=== PATIENT | male | born 1950 | race Caucasian/White ===

== ENCOUNTER 2017-09-07 15:09 | Emergency (ER) | payer OTHER ==
--- NOTE | 2017-09-07 15:13 | PDOC ---
Rapid Medical Evaluation Time Seen by Provider: 09/07/17 15:10 Medical Evaluation: Allergies Allergy/AdvReac Type Severity Reaction Status Date / Time No Known Allergies Allergy Verified 12/12/15 19:07 09/07/17 15:11 I have performed a brief in-person evaluation of this patient. The patient presents with a chief complaint of: nail infection x 2 weeks Pertinent physical exam findings: tenderness, discoloration of left thumbnail I have ordered the following: nothing The patient will proceed to the ED for further evaluation. Discharge Disposition - Diagnosis Nail bed infection - Referrals - Patient Instructions - Post Discharge Activity
[2017-09-07 15:14] VITALS: BP 132/59; PULSE 65; TEMP 98.3; BMI 44.2
--- NOTE | 2017-09-07 15:22 | PDOC ---
History of Present Illness - General Chief Complaint: Pain Stated Complaint: FINGER NAIL PROBLEM Time Seen by Provider: 09/07/17 15:10 History Source: Patient Exam Limitations: No Limitations (66y/o M with L thumb pain X 2wk) Past History - Travel Traveled outside of the country in the last 30 days: No Close contact w/someone who was outside of country & ill: No - Past Medical History Allergies/Adverse Reactions: Allergies Allergy/AdvReac Type Severity Reaction Status Date / Time No Known Allergies Allergy Verified 09/07/17 15:12 Home Medications: Ambulatory Orders Folic Acid 1 mg PO DAILY 04/21/15 Levothyroxine [Synthroid -] 50 mcg PO DAILY 04/21/15 Multivitamin [Poly-Vitamin] 1 each PO DAILY 04/21/15 Prednisone 5 mg PO DAILY 04/21/15 Tamsulosin HCl [Flomax] 0.4 mg PO DAILY 04/21/15 Methotrexate [Mexate -] 20 mg PO Q7D 04/22/15 Ciclopirox [Penlac] 3.3 ml TP HS #1 bottle 09/07/17 COPD: Yes GI Disorders: Yes (COLON POLYPS) Liver Disease: (LARGE LIVER) Thyroid Disease: Yes (HYPOTHYROIDISM) Other medical history: arthritis - Surgical History Cholecystectomy: Yes - Immunization History Immunization Up to Date: Yes - Suicide/Smoking/Psychosocial Hx Smoking History: Never smoked Have you smoked in the past 12 months: No Information on smoking cessation initiated: No Hx Alcohol Use: No Drug/Substance Use Hx: No *Physical Exam - Vital Signs Last Vital Signs Temp Pulse Resp BP Pulse Ox 98.3 F 65 18 132/59 97 09/07/17 15:12 09/07/17 15:12 09/07/17 15:12 09/07/17 15:12 09/07/17 15:12 - Physical Exam General Appearance: Yes: Nourished Integumentary: positive: Other (L thumb nail with greenish discoloration up to 40% of nail, no pocket of abscess noted) Medical Decision Making - Medical Decision Making 09/07/17 15:35 66y/o M R hand dominant with L thumb onychomycosis, s/p gel nail ivorian 2wks ago Plan: xray to r/o bone involvement Rx for ciclopirox with derm f/u x-ray degenerative changes, no bone involvement. *DC/Admit/Observation/Transfer Diagnosis at time of Disposition: Nail bed infection, Nail fungal infection - Discharge Dispostion Disposition: HOME Condition at time of disposition: Stable Admit: No - Prescriptions Prescriptions: Ciclopirox [Penlac] 3.3 ml TP HS #1 bottle - Referrals Referrals: Francis Barrientos MD [Primary Care Provider] - Allison Correia MD [Staff Physician] - 1 week - Patient Instructions Printed Discharge Instructions: Onychomycosis - Post Discharge Activity
[2017-09-07] MEDS ORDERED: IBUPROFEN 600 MG TABLET (FP) PO ONE ×2 (15:36→15:44)
== END 2017-09-07 16:36 | disposition home or self-care (01) ==
LOC: JERFT 15:09
DX: B35.1 Tinea unguium (principal); J44.9 Chronic obstructive pulmonary disease, unspecified; E03.9 Hypothyroidism, unspecified; M12.9 Arthropathy, unspecified; Z87.19 Personal history of other diseases of the digestive system
CPT/HCPCS: 73140-TC-LT-FY; 99281-25

== ENCOUNTER 2018-02-12 11:36 | Inpatient (IN) | payer OTHER ==
--- NOTE | 2018-02-12 12:03 | PDOC ---
History of Present Illness - General Chief Complaint: Shortness of Breath Stated Complaint: PCP SENT Time Seen by Provider: 02/12/18 11:53 - History of Present Illness Initial Comments: 02/12/18 12:02 Patient is a 67 year old male with a PMH of BPH, hypothyroidism, morbid obesity s/p gastric bypass in July 2017, presents to the ED c/o 5 day h/o cough and dyspnea. Cough is non-productive, constant, associated with dyspnea. Cough exacerbated with sitting or lying flat. No POWERS, pleuritic chest pain. Endorse sore throat. No fevers/chills. Tried Dayquil and Nyquil with no relief of symptoms. Tolerating PO intake, however limited appetite 2/2 to his symptoms. Last BM this morning prior to presentation and was normal. No family cardiac history. No h/o recent travel or immobilization. Patient smoked for 4-5 years but quit @ age 21. [place] and states he spends most of the day standing, no known sick contacts. Patient was evaluated by his PMD, Dr. Francis Barrientos this morning who instructed patient to come to the ED for further evaluation. Patient denies chest pain. Patient denies abdominal pain, nausea/vomiting, diarrhea/constipation, dysuria/ hematuria. NKDA Surgical: cholecystectomy, bariatric surgery Social: remote smoking history, denies alcohol, denies recreational drugs PMD: Dr. Francis Barrientos As per EMR, patient last evaluated in our ED in 08/2017 for L digit onychomycosis. Past History - Past Medical History Allergies/Adverse Reactions: Allergies Allergy/AdvReac Type Severity Reaction Status Date / Time No Known Allergies Allergy Verified 02/12/18 11:38 Home Medications: Ambulatory Orders Folic Acid 1 mg PO DAILY 04/21/15 Levothyroxine [Synthroid -] 50 mcg PO DAILY 04/21/15 Multivitamin [Poly-Vitamin] 1 each PO DAILY 04/21/15 Prednisone 5 mg PO DAILY 04/21/15 Tamsulosin HCl [Flomax] 0.4 mg PO DAILY 04/21/15 Methotrexate [Mexate -] 20 mg PO Q7D 04/22/15 COPD: Yes GI Disorders: Yes (COLON POLYPS) Liver Disease: (LARGE LIVER) Thyroid Disease: Yes (HYPOTHYROIDISM) Other medical history: prostate - Surgical History Abdominal Surgery: Yes (gastric sleeve) Cholecystectomy: Yes - Immunization History Immunization Up to Date: Yes - Suicide/Smoking/Psychosocial Hx Smoking History: Never smoked Have you smoked in the past 12 months: No Hx Alcohol Use: No Drug/Substance Use Hx: No Substance Use Type: None Review of Systems - Review of Systems Constitutional: No: Chills, Fever HEENTM: No: Blurred Vision, Double Vision Respiratory: Yes: Cough, Shortness of Breath. No: Stridor, Wheezing, Hemoptysis Cardiac (ROS): No: Chest Pain, Lightheadedness, Palpitations ABD/GI: No: Constipated, Diarrhea, Nausea, Vomiting : No: Burning, Dysuria *Physical Exam - Vital Signs Last Vital Signs Temp Pulse Resp BP Pulse Ox 98.1 F 69 20 115/71 95 02/12/18 11:38 02/12/18 11:38 02/12/18 11:38 02/12/18 11:38 02/12/18 11:38 - Physical Exam General Appearance: Yes: Nourished, Obese HEENT: positive: EOMI, BERTRAM, Hearing Grossly Normal, TM Erythema. negative: Pharyngeal Erythema, TM Bulging, TM Dull Neck: positive: Trachea midline, Supple Respiratory/Chest: positive: Rhonchi. negative: Chest Tender, Accessory Muscle Use, Labored Respiration, Rapid RR, Crackles, Rales, Wheezing Cardiovascular: positive: Regular Rhythm, S1, S2 Vascular Pulses: Dorsalis-Pedis (R): 2+, Doralis-Pedis (L): 2+ Extremity: positive: Other (2+ B/L LE pitting edema) Integumentary: positive: Normal Color, Dry, Warm ED Treatment Course - LABORATORY CBC & Chemistry Diagram: 02/12/18 12:14 02/12/18 12:14 - RADIOLOGY Radiology Studies Ordered: Category Date Time Status CHEST X-RAY PORTABLE* [RAD] Stat Radiology 02/12/18 12:01 Ordered Medical Decision Making - Medical Decision Making 02/12/18 12:29 67 year old male presents to ED c/o cough and dyspnea. VS unremarkable, scattered rhonchi on PE. Frontal diagnosis: PNA, Bronchitis, Influenza, Viral URI, less likely r/o ACS, PE, new onset CHF. W/u: Troponin, D-Dimer, EKG, BNP, CXR. Reassess. 02/12/18 13:20 CXR shows new L lower lobe infiltrate. Patient continues to breath comfortably on RA - will administer Duo-Neb x1 to see if any symptomatic relief. No leukocytosis D-Dimer pending. 02/12/18 13:22 S/p Duo-Neb Influenza A negative D-Dimer normal BNP nL 02/12/18 13:36 Case d/w patient's PMD, Dr. Barrientos, requests observation admission given patient 's age. Dr. Hoskins for pulm consult Patient admitted for observation. Patient and patient's family @ bedside counseled on plan of care. *DC/Admit/Observation/Transfer Diagnosis at time of Disposition: Cough - Discharge Dispostion Condition at time of disposition: Fair Decision to Admit order: Yes - Referrals - Patient Instructions - Post Discharge Activity
--- NOTE | 2018-02-12 12:13 | PDOC ---
Attending Attestation - Medical Decision Making EXAM#: TYPE/EXAM: RESULT: [id number] RAD/CHEST PA LAT 2 view chest Cough with shortness of breath Left lower lobe pulmonary infiltrates consistent with left lower lobe pneumonia Impression: Left lower lobe pneumonia. Reported By: Geo Wren MD 02/12/18 1238 02/12/18 13:01 Documentation prepared by Maite Van, acting as medical affairs leader for Michael Aguilar MD, <Maite Van - Last Filed: 02/12/18 13:01> - Resident Resident Name: Alessia Liangica - ED Attending Attestation I have performed the following: I have examined & evaluated the patient, The case was reviewed & discussed with the resident, I agree w/resident's findings & plan, Exceptions are as noted - HPI HPI: 02/12/18 13:44 The patient is a 67 year old male, with a significant past medical history of BPH, hypothyroidism, and gastric bypass (07/25/17), who presents to the emergency department with dry cough, shortness of breath, and orthopnea since Monday morning. He states he noticed a slight cough late night into Monday morning. He reportedly took Dayquil and Nyquil on Monday with no relief. He states his cough is non productive and exacerbated with sitting or lying flat. He reports taking a deep breath also exacerbates his cough. He reports mild shortness of breath with lying flat which he attributes to the exacerbation of cough when in that flat position. He also reports intermittent chills, but denies fever. He reports associated throat pain with coughing. He denies shortness of breath with walking. He denies pleuritic pain. Secondarily, he states he has not eaten any solid food since the onset of symptoms on Monday and reportedly only drank approximately 32 oz of fluids. He states he does not feel hungry. 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 He states he went to see his PCP, Dr. Barrientos, who advised him to come to the ED. The patient denies chest pain, headache and dizziness. The patient denies fever , chills, nausea, vomit, diarrhea and constipation. The patient denies dysuria, frequency, urgency and hematuria. Allergies: NKDA Past surgical history: gastric bypas Social history: former smoker (+40 yrs ago) PCP - Dr. Barrientos - Physicial Exam PE: 02/12/18 12:43 GENERAL: The patient is awake, alert, and fully oriented, Nontoxic - in no acute distress. HEAD: Normocephalic, atraumatic. EYES: extraocular movements intact, sclera anicteric, conjunctiva clear. ENT: Normal voice, Moist mucous membranes. NECK: Normal range of motion, supple LUNGS: Breath sounds equal, clear to auscultation bilaterally. No wheezes, no rhonchi, no rales. HEART: Regular rate and rhythm, normal S1 and S2 without murmur, rub or gallop. ABDOMEN: Soft, nontender, normoactive bowel sounds. No guarding, no rebound. . No CVA tenderness EXTREMITIES: Normal range of motion, trace edema. neg homans sign b/l. NEUROLOGICAL: No facial assymetry, Normal speech, PSYCH: Normal mood, normal affect. SKIN: Warm, Dry, normal turgor, - Medical Decision Making 02/12/18 12:44 Differential for the patient's symptoms includes bronchitis, low suspicion of possible ACS also consider PE however the patient's wells criteria is low risk. Pain blood work chest x-ray EKG will reassess 02/12/18 13:44 The patient's chest x-ray noted for L sided infiltrate Suspect possible pneumonia we'll treat evaluation with antibiotics His blood work was unremarkable otherwise <Michael Aguilar - Last Filed: 02/12/18 13:44> Heart Score/ECG Review - ECG Impressions Comment:: 02/12/18 12:32 Twelve-lead EKG was performed and reviewed by me. There is normal sinus rhythm with a rate of 57 The axis is normal. The intervals are normal. There is normal R wave progression There are no ST or T wave abnormalities. Impression: Sinus bradycardia <Michael Aguilar - Last Filed: 02/12/18 13:44>
[2018-02-12 12:28] LABS: BASO % 0.4 % (0-2.0); EOS % 2.6 % (0-4.5); HEMATOCRIT 44.6 % (35.4-49); HEMOGLOBIN 15.5 GM/dL (11.7-16.9); LYMPH % 13.8 % (8-40); MCH 31.7 pg (25.7-33.7); MCHC 34.7 g/dl (32.0-35.9); MEAN CELL VOLUME 91.3 fl (80-96); MEAN PLT VOLUME 8.1 fl (7.5-11.1); MONO % 9.7 % (3.8-10.2); NEUT % 73.5 % (42.8-82.8); PLATELET COUNT 186 K/MM3 (134-434); RBC 4.88 M/mm3 (4.00-5.60); RDW 13.4 % (11.9-15.9); WHITE BLOOD COUNT 7.4 K/mm3 (4.0-10.0)
[2018-02-12] MEDS ORDERED: ALBUTEROL SO4 2.5/IPRATROPIUM 0.5 INH SOL 3 ML VIAL.NEB. NEB ONE ×2 (12:44→13:02)
[2018-02-12 12:51] LABS: ALBUMIN 3.1 g/dl (3.4-5.0); ALK PHOS 82 U/L (45-117); ANION GAP 8 MMOL/L (8-16); BILIRUBIN,TOTAL 1.5 mg/dL (0.2-1); BLOOD UREA NITROGEN 13 mg/dL (7-18); CALCIUM 8.3 mg/dL (8.5-10.1); CHLORIDE 103 mmol/L (98-107); CO2 28 mmol/L (21-32); CREATININE 0.8 mg/dL (0.55-1.3); GLUCOSE,RANDOM 99 mg/dL (74-106); N-TERMINAL BNP 11.3 pg/ml (5-125); POTASSIUM 4.1 mmol/L (3.5-5.1); SGOT/AST 22 U/L (15-37); SGPT/ALT 18 U/L (13-61); SODIUM 139 mmol/L (136-145); TOT PROT 6.9 g/dl (6.4-8.2)
[2018-02-12] MEDS ORDERED: guaiFENesin/D-M SUGAR-FREE/ACLHOL-FREE 118 ML BOTTLE PO ONE (15:40)
[2018-02-12] MEDS ORDERED: ACETAMINOPHEN 325 MG TABLET (FP) PO PRN (15:47)
[2018-02-12] MEDS ORDERED: ALBUTEROL SO4 2.5/IPRATROPIUM 0.5 INH SOL 3 ML VIAL.NEB. NEB PRN (15:47)
--- NOTE | 2018-02-12 18:07 | EKG ---
Test Reason : Blood Pressure : / mmHG Vent. Rate : 057 BPM Atrial Rate : 057 BPM P-R Int : 152 ms QRS Dur : 080 ms QT Int : 408 ms P-R-T Axes : 109 007 043 degrees QTc Int : 397 ms SINUS BRADYCARDIA OTHERWISE NORMAL ECG NO PREVIOUS ECGS AVAILABLE Confirmed by KIM HERNANDES MD ([id number]) on 02/12/2018 6:07:19 PM Referred By: Confirmed By:KIM HERNANDES MD
[2018-02-13] MEDS ORDERED: AZITHROMYCIN 250 MG TABLET PO ONE (05:22)
[2018-02-13] MEDS: LEVOTHYROXINE NA 50 MCG TABLET (FP) PO SCH (06:36)
[2018-02-13] MEDS ORDERED: cefTRIAXone SODIUM 1 GM VIAL ONE (09:15)
[2018-02-13] MEDS ORDERED: DEXTROSE 5%-WATER - 50 ML IVPB ONE (09:16)
[2018-02-13] MEDS: FOLIC ACID 1 MG TABLET (FP) PO SCH (09:25)
[2018-02-13] MEDS: TAMSULOSIN HCL 0.4 MG CAP.ER.24H (FP) PO SCH (09:25)
[2018-02-13] MEDS: predniSONE 5 MG TABLET (UD) PO SCH (09:25)
[2018-02-13] MEDS: CEFTRIAXONE 1 GM in DEXTROSE 5%-WATER - 50 ML IVPB SCH (09:25)
--- NOTE | 2018-02-13 11:04 | CON.PULM ---
Consult Consult Specialty:: PULMONARY Referred by:: Dr. Barrientos Reason for Consultation:: pneumonia - History of Present Illness Chief Complaint: cough History of Present Illness: 67yo male with h/o hypothyroidism, BPH who was admitted with cough and shortness of breath x 4 days. Cough is nonproductive and precipitates the shortness of breath. No chest pain or palpitations. No wheezing. Does report subjective fevers, chills and sweats prior to admission. Received flu and pneumonia vaccine last year. No prior pneumonias. He is a remote smoker, no history of asthma or COPD. - History Source History Provided By: Patient, Medical Record Limitations to Obtaining History: No Limitations - Past Medical History Renal/: Yes: BPH Endocrine: Yes: Hypothyroidism - Alcohol/Substance Use Hx Alcohol Use: No - Smoking History Smoking history: Never smoked Have you smoked in the past 12 months: No If you are a former smoker, when did you quit?: 20 years ago Home Medications - Allergies Allergies/Adverse Reactions: Allergies Allergy/AdvReac Type Severity Reaction Status Date / Time No Known Allergies Allergy Verified 02/12/18 11:38 - Home Medications Home Medications: Ambulatory Orders Folic Acid 1 mg PO DAILY 04/21/15 Levothyroxine [Synthroid -] 50 mcg PO DAILY 04/21/15 Multivitamin [Poly-Vitamin] 1 each PO DAILY 04/21/15 Prednisone 5 mg PO DAILY 04/21/15 Tamsulosin HCl [Flomax] 0.4 mg PO DAILY 04/21/15 Methotrexate [Mexate -] 20 mg PO Q7D 04/22/15 Review of Systems - Review of Systems Constitutional: reports: Chills, Fever, Loss of Appetite, Night Sweats Eyes: denies: Recent Change in Vision HENT: denies: Nasal Congestion, Throat Pain Neck: denies: Stiffness, Tenderness Cardiovascular: reports: Shortness of Breath. denies: Chest Pain, Edema, Palpitations Respiratory: reports: Cough. denies: Hemoptysis, Wheezing Gastrointestinal: denies: Abdominal Pain, Nausea, Vomiting Genitourinary: denies: Dysuria, Hematuria Neurological: denies: Dizziness, Headache Physical Exam Vital Sings: Vital Signs Temperature 98.5 F 02/13/18 09:20 Pulse Rate 75 02/13/18 09:20 Respiratory Rate 18 02/13/18 09:20 Blood Pressure 113/70 02/13/18 09:20 O2 Sat by Pulse Oximetry (%) 96 02/12/18 18:42 Constitutional: Yes: Calm Eyes: Yes: Conjunctiva Clear, EOM Intact HENT: Yes: Atraumatic, Normocephalic Neck: Yes: Supple, Trachea Midline Cardiovascular: Yes: Regular Rate and Rhythm Respiratory: Yes: Diminished (decreased breath sounds at the bases) ...Clubbing: No Gastrointestinal: Yes: Normal Bowel Sounds, Soft. No: Tenderness Edema: No Neurological: Yes: Alert, Oriented Labs: CBC, BMP 02/12/18 12:14 02/12/18 12:14 Imaging - Results Chest X-ray: Report Reviewed, Image Reviewed (LLL infiltrate) Problem List - Problems (1) Pneumonia Code(s): J18.9 - PNEUMONIA, UNSPECIFIED ORGANISM (2) Hypothyroid Code(s): E03.9 - HYPOTHYROIDISM, UNSPECIFIED (3) BPH (benign prostatic hyperplasia) Code(s): N40.0 - BENIGN PROSTATIC HYPERPLASIA WITHOUT LOWER URINRY TRACT SYMP Assessment/Plan Pneumonia - Community Acquired Hypothyroidism BPH - agree with ceftriaxone/azithromycin - send urinary antigens - if cultures negative, can likely change antibiotics to PO in AM - will need outpt CXR in 6-8 weeks to ensure resolution of infiltrates - DVT prophylaxis Thank you for this consult Jhony Ng MD
--- NOTE | 2018-02-13 13:24 | PN ---
Progress Note (short form) - Note Progress Note: ID CONSULT DICTATED COMMUNITY ACQUIRED V. ATYPICAL LLL PNEUMONIA RA ON MTX/ PREDNISONE AWAIT C/S EMPIRIC ZITHROMAX/ CEFTRIAXONE
--- NOTE | 2018-02-13 13:54 | CONS ---
DATE OF CONSULTATION: DATE OF DICTATION: 02/13/2018 INFECTIOUS DISEASE CONSULTATION The patient is a 67-year-old male with a history of rheumatoid arthritis on prednisone and methotrexate evaluated for pneumonia. The patient states he began to feel unwell on Friday, February 09, 2018. He began to feel dyspneic and developed a nonproductive cough. He developed progressively worsening shortness of breath and a nonproductive cough as well as anorexia. He reports having little to no oral intake over the past several days. He presented to his primary care doctor and was referred to the hospital for admission. On admission a chest x-ray shows a left lower lobe infiltrate. The cough is described as nonproductive. He denies any purulent sputum production or hemoptysis. The patient is a nonsmoker. He works in [employer] and is exposed to many passengers. He denies any recent travel himself and no recent hospitalizations. He is up-to-date with respect to influenza and pneumococcal vaccines. PAST MEDICAL HISTORY: Positive for BPH, hypothyroidism, and obesity. PAST SURGICAL HISTORY: Status post gastric bypass and cholecystectomy. ALLERGIES: No known allergies. MEDICATIONS: Folic acid, Synthroid, prednisone 5 mg, methotrexate, and Flomax. SOCIAL HISTORY: He is a former smoker and stopped many years ago. He lives in the community with his significant other. SYSTEMS REVIEW: Neurologic: No loss of consciousness, seizure activity or focal weakness. Cardiac: Negative chest pain or palpitations. Respiratory: As per HPI. Gastrointestinal: Negative vomiting and diarrhea. Genitourinary: Negative for urinary tract infection. LABORATORY DATA: White count 7.4, BUN 13, and creatinine 0.8. Influenza swab is negative. Sputum culture and urine Legionella antigen pending. PHYSICAL EXAMINATION: General: He is awake and alert. He is in no acute respiratory distress. He does have paroxysms of cough with deep inspiration. Vital Signs: Temperature is 98.5, blood pressure 113/70, pulse 75 and regular, and respirations 18 per minute. HEENT: Sclerae anicteric. Heart: Sounds S1, S2. Lungs: Rhonchi at the bases bilaterally. Abdomen: Obese, soft, and nontender. Extremities: Negative for edema. Stasis dermatitis is noted in left lower extremity. IMPRESSION: 1. Community-acquired versus atypical left lower lobe pneumonia. 2. Possible sepsis secondary to pneumonia. 3. History of rheumatoid arthritis on prednisone and methotrexate. Pending cultures empiric antibiotic coverage with Zithromax and ceftriaxone, obtain a sputum culture, urine Legionella antigen, and pulmonary evaluation. Thank you for the kind referral. EVANS ARANDA M.D. [id number]
[2018-02-13] MEDS: guaiFENesin 200 MG/10 ML 10 ML UNIT-DOSE CUPS PO PRN ×2 (14:26→21:31)
--- NOTE | 2018-02-13 15:11 | HP ---
Admitting History and Physical - Primary Care Physician PCP: Francis Barrientos - Admission History of Present Illness: The patient is a 67 year old male, with a significant past medical history of BPH, hypothyroidism, and gastric bypass (07/25/17), who presents to the emergency department with dry cough, shortness of breath, and orthopnea since Monday morning. He states he noticed a slight cough late night into Monday morning. He reportedly took Dayquil and Nyquil on Monday with no relief. He states his cough is non productive and exacerbated with sitting or lying flat. He reports taking a deep breath also exacerbates his cough. He reports mild shortness of breath with lying flat which he attributes to the exacerbation of cough when in that flat position. He also reports intermittent chills, but denies fever. He reports associated throat pain with coughing. He denies shortness of breath with walking. He denies pleuritic pain. Secondarily, he states he has not eaten any solid food since the onset of symptoms on Monday and reportedly only drank approximately 32 oz of fluids. He states he does not feel hungry. 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 He states he went to see his PCP, Dr. Barrientos, who advised him to come to the ED. The patient denies chest pain, headache and dizziness. The patient denies fever , chills, nausea, vomit, diarrhea and constipation. The patient denies dysuria, frequency, urgency and hematuria. Allergies: NKDA Past surgical history: gastric bypas Social history: former smoker (+40 yrs ago) PCP - Dr. Barrientos History Source: Patient, Medical Record - Past Medical History Renal/: Yes: BPH Musculoskeletal: Yes: Other Rheumatology: Yes: Rheumatoid Arthritis Endocrine: Yes: Hypothyroidism - Smoking History Smoking history: Never smoked Have you smoked in the past 12 months: No If you are a former smoker, when did you quit?: 20 years ago - Alcohol/Substance Use Hx Alcohol Use: No Home Medications - Allergies Allergies/Adverse Reactions: Allergies Allergy/AdvReac Type Severity Reaction Status Date / Time No Known Allergies Allergy Verified 02/12/18 11:38 - Home Medications Home Medications: Ambulatory Orders Folic Acid 1 mg PO DAILY 04/21/15 Levothyroxine [Synthroid -] 50 mcg PO DAILY 04/21/15 Multivitamin [Poly-Vitamin] 1 each PO DAILY 04/21/15 Prednisone 5 mg PO DAILY 04/21/15 Tamsulosin HCl [Flomax] 0.4 mg PO DAILY 04/21/15 Methotrexate [Mexate -] 20 mg PO Q7D 04/22/15 Review of Systems - Review of Systems Respiratory: reports: Cough Physical Examination Vital Signs: Vital Signs Temperature 97.9 F 02/13/18 14:51 Pulse Rate 64 02/13/18 14:51 Respiratory Rate 18 02/13/18 14:51 Blood Pressure 119/64 02/13/18 14:51 O2 Sat by Pulse Oximetry (%) 96 02/13/18 09:20 Constitutional: Yes: Calm Neck: Yes: Trachea Midline Cardiovascular: Yes: Regular Rate and Rhythm, S1, S2 Respiratory: Yes: Wheezes, Other (crackles) Gastrointestinal: Yes: Normal Bowel Sounds, Soft Edema: No Labs: CBC, BMP 02/12/18 12:14 02/12/18 12:14 Imaging - Results Chest X-ray: Report Reviewed (left lower lobe infiltrate) Problem List - Problems (1) Pneumonia Assessment/Plan: urine legionalla pending zithromax and rocpehin ID and pulm on board culuture pending Code(s): J18.9 - PNEUMONIA, UNSPECIFIED ORGANISM (2) BPH (benign prostatic hyperplasia) Assessment/Plan: flomax Code(s): N40.0 - BENIGN PROSTATIC HYPERPLASIA WITHOUT LOWER URINRY TRACT SYMP (3) Hypothyroid Assessment/Plan: check tsh on synthroid Code(s): E03.9 - HYPOTHYROIDISM, UNSPECIFIED (4) Rheumatoid arthritis Assessment/Plan: prednisone mtx once a week Code(s): M06.9 - RHEUMATOID ARTHRITIS, UNSPECIFIED
[2018-02-13] MEDS: AZITHROMYCIN IVPB 500 MG in DEXTROSE 5%-WATER - 250 ML IVPB SCH (15:38)
[2018-02-14] MEDS: LEVOTHYROXINE NA 50 MCG TABLET (FP) PO SCH (06:26)
[2018-02-14] MEDS: guaiFENesin 200 MG/10 ML 10 ML UNIT-DOSE CUPS PO PRN ×4 (06:26→21:39)
[2018-02-14 07:12] LABS: BASO % 0.8 % (0-2.0); EOS % 4.1 % (0-4.5); HEMATOCRIT 42.9 % (35.4-49); HEMOGLOBIN 14.5 GM/dL (11.7-16.9); LYMPH % 26.6 % (8-40); MCHC 33.8 g/dl (32.0-35.9); MEAN CELL VOLUME 91.5 fl (80-96); MEAN PLT VOLUME 7.9 fl (7.5-11.1); MONO % 8.9 % (3.8-10.2); NEUT % 59.6 % (42.8-82.8); PLATELET COUNT 192 K/MM3 (134-434); RBC 4.69 M/mm3 (4.00-5.60); RDW 13.3 % (11.9-15.9); WHITE BLOOD COUNT 6.5 K/mm3 (4.0-10.0)
[2018-02-14 07:39] LABS: ALBUMIN 2.9 g/dl (3.4-5.0); ALK PHOS 73 U/L (45-117); ANION GAP 8 MMOL/L (8-16); BILIRUBIN,TOTAL 0.5 mg/dL (0.2-1); BLOOD UREA NITROGEN 12 mg/dL (7-18); CALCIUM 8.7 mg/dL (8.5-10.1); CHLORIDE 103 mmol/L (98-107); CO2 28 mmol/L (21-32); CREATININE 0.8 mg/dL (0.55-1.3); GLUCOSE,RANDOM 77 mg/dL (74-106); SGOT/AST 9 U/L (15-37); SGPT/ALT 15 U/L (13-61); SODIUM 140 mmol/L (136-145); TOT PROT 6.2 g/dl (6.4-8.2)
[2018-02-14] MEDS ORDERED: AZITHROMYCIN IVPB 500 MG in DEXTROSE 5%-WATER - 250 ML IVPB SCH (10:00)
--- NOTE | 2018-02-14 10:00 | PN ---
Progress Note, Physician Chief Complaint: AWAKE ALERT EVENTS REVIEWED FEELING BETTER - Current Medication List Current Medications: Active Medications Acetaminophen (Tylenol -) 650 mg PO Q6H PRN PRN Reason: FEVER Albuterol/Ipratropium (Duoneb -) 1 amp NEB Q6H PRN PRN Reason: SHORTNESS OF BREATH Folic Acid (Folic Acid -) 1 mg PO DAILY [facility] Last Admin: 02/13/18 09:25 Dose: 1 mg Guaifenesin (Robitussin -) 10 ml PO Q4H PRN PRN Reason: COUGH Last Admin: 02/14/18 06:26 Dose: 10 ml Ceftriaxone Sodium 1 gm/ (Dextrose) 50 mls @ 100 mls/hr IVPB DAILY [facility]; Protocol Last Admin: 02/13/18 09:25 Dose: 100 mls/hr Azithromycin 500 mg/ Dextrose 250 mls @ 250 mls/hr IVPB DAILY [facility] Last Admin: 02/13/18 15:38 Dose: 250 mls/hr Levothyroxine Sodium (Synthroid -) 50 mcg PO DAILY@0700 [facility] Last Admin: 02/14/18 06:26 Dose: 50 mcg Prednisone (Deltasone -) 5 mg PO DAILY [facility] Last Admin: 02/13/18 09:25 Dose: 5 mg Tamsulosin HCl (Flomax -) 0.4 mg PO DAILY@0830 [facility] Last Admin: 02/13/18 09:25 Dose: 0.4 mg - Objective Vital Signs: Vital Signs Temperature 97.6 F 02/14/18 05:16 Pulse Rate 64 02/14/18 05:16 Respiratory Rate 18 02/14/18 05:16 Blood Pressure 110/58 L 02/14/18 05:16 O2 Sat by Pulse Oximetry (%) 96 02/13/18 21:00 Constitutional: Yes: Mild Distress Eyes: Yes: WNL HENT: Yes: WNL Neck: Yes: WNL Cardiovascular: Yes: WNL Respiratory: Yes: Cough, On Nasal O2, Rhonchi Gastrointestinal: Yes: WNL Genitourinary: Yes: WNL Musculoskeletal: Yes: WNL Extremities: Yes: WNL Edema: No Peripheral Pulses WNL: Yes Integumentary: Yes: WNL Wound/Incision: Yes: Clean/Dry Neurological: Yes: WNL ...Motor Strength: WNL Psychiatric: Yes: WNL Labs: CBC, BMP 02/14/18 06:00 02/14/18 06:00 Problem List - Problems (1) BPH (benign prostatic hyperplasia) Code(s): N40.0 - BENIGN PROSTATIC HYPERPLASIA WITHOUT LOWER URINRY TRACT SYMP (2) Cough Code(s): R05 - COUGH (3) Hypothyroid Code(s): E03.9 - HYPOTHYROIDISM, UNSPECIFIED (4) Pneumonia Code(s): J18.9 - PNEUMONIA, UNSPECIFIED ORGANISM (5) Rheumatoid arthritis Code(s): M06.9 - RHEUMATOID ARTHRITIS, UNSPECIFIED Assessment/Plan IV ABX IMMUNOCOMPRIMISED ON MTX WILL NEED REPEAT CXR IN 6-8 WEEKS NEBS OOB TO CHAIR DVT PROPHYLAXIS
[2018-02-14] MEDS ORDERED: DEXTROSE 5%-WATER - 50 ML IVPB ONE (10:14)
[2018-02-14] MEDS ORDERED: cefTRIAXone SODIUM 1 GM VIAL ONE (10:14)
[2018-02-14] MEDS: CEFTRIAXONE 1 GM in DEXTROSE 5%-WATER - 50 ML IVPB SCH (10:29)
[2018-02-14] MEDS: FOLIC ACID 1 MG TABLET (FP) PO SCH (10:29)
[2018-02-14] MEDS: TAMSULOSIN HCL 0.4 MG CAP.ER.24H (FP) PO SCH (10:29)
[2018-02-14] MEDS: predniSONE 5 MG TABLET (UD) PO SCH (10:29)
[2018-02-14] MEDS: AZITHROMYCIN IVPB 500 MG in DEXTROSE 5%-WATER - 250 ML IVPB SCH (11:10)
--- NOTE | 2018-02-14 14:18 | PN ---
Progress Note (short form) - Note Progress Note: PULMONARY Still with nonproductive cough. No fevers. Vital Signs Period Temp Pulse Resp BP Sys/Arnold Pulse Ox Last 24 Hr 97.5 F-98.3 F 60-68 18-18 104-135/58-70 96-97 Gen: NAD at rest Heart: RRR Lung: left base rales Abd: soft, nontender Ext: no edema CBC, BMP 02/14/18 06:00 02/14/18 06:00 Active Medications Acetaminophen (Tylenol -) 650 mg PO Q6H PRN PRN Reason: FEVER Albuterol/Ipratropium (Duoneb -) 1 amp NEB Q6H PRN PRN Reason: SHORTNESS OF BREATH Folic Acid (Folic Acid -) 1 mg PO DAILY [facility] Last Admin: 02/14/18 10:29 Dose: 1 mg Guaifenesin (Robitussin -) 10 ml PO Q4H PRN PRN Reason: COUGH Last Admin: 02/14/18 10:31 Dose: 10 ml Ceftriaxone Sodium 1 gm/ (Dextrose) 50 mls @ 100 mls/hr IVPB DAILY [facility]; Protocol Last Admin: 02/14/18 10:29 Dose: 100 mls/hr Azithromycin 500 mg/ Dextrose 250 mls @ 250 mls/hr IVPB DAILY [facility] Last Admin: 02/14/18 11:10 Dose: 250 mls/hr Levothyroxine Sodium (Synthroid -) 50 mcg PO DAILY@0700 [facility] Last Admin: 02/14/18 06:26 Dose: 50 mcg Prednisone (Deltasone -) 5 mg PO DAILY [facility] Last Admin: 02/14/18 10:29 Dose: 5 mg Tamsulosin HCl (Flomax -) 0.4 mg PO DAILY@0830 [facility] Last Admin: 02/14/18 10:29 Dose: 0.4 mg A/P Pneumonia - Community Acquired vs Atypical Rheumatoid Arthritis on immunosuppressants Hypothyroidism BPH - continue ceftriaxone/azithromycin - f/u cultures - incentive spirometry/ambulate - will need outpt CXR in 6-8 weeks to ensure resolution of infiltrates - DVT prophylaxis Problem List - Problems (1) Pneumonia Code(s): J18.9 - PNEUMONIA, UNSPECIFIED ORGANISM (2) Hypothyroid Code(s): E03.9 - HYPOTHYROIDISM, UNSPECIFIED (3) BPH (benign prostatic hyperplasia) Code(s): N40.0 - BENIGN PROSTATIC HYPERPLASIA WITHOUT LOWER URINRY TRACT SYMP
[2018-02-14 14:54] VITALS: BMI 40.5
[2018-02-15] MEDS: LEVOTHYROXINE NA 50 MCG TABLET (FP) PO SCH (06:18)
--- NOTE | 2018-02-15 08:17 | PN ---
Progress Note, Physician - Current Medication List Current Medications: Active Medications Acetaminophen (Tylenol -) 650 mg PO Q6H PRN PRN Reason: FEVER Albuterol/Ipratropium (Duoneb -) 1 amp NEB Q6H PRN PRN Reason: SHORTNESS OF BREATH Folic Acid (Folic Acid -) 1 mg PO DAILY [facility] Last Admin: 02/14/18 10:29 Dose: 1 mg Guaifenesin (Robitussin -) 10 ml PO Q4H PRN PRN Reason: COUGH Last Admin: 02/14/18 21:39 Dose: 10 ml Ceftriaxone Sodium 1 gm/ (Dextrose) 50 mls @ 100 mls/hr IVPB DAILY [facility]; Protocol Last Admin: 02/14/18 10:29 Dose: 100 mls/hr Azithromycin 500 mg/ Dextrose 250 mls @ 250 mls/hr IVPB DAILY [facility] Last Admin: 02/14/18 11:10 Dose: 250 mls/hr Levothyroxine Sodium (Synthroid -) 50 mcg PO DAILY@0700 [facility] Last Admin: 02/15/18 06:18 Dose: 50 mcg Prednisone (Deltasone -) 5 mg PO DAILY [facility] Last Admin: 02/14/18 10:29 Dose: 5 mg Tamsulosin HCl (Flomax -) 0.4 mg PO DAILY@0830 [facility] Last Admin: 02/14/18 10:29 Dose: 0.4 mg - Objective Vital Signs: Vital Signs Temperature 98.3 F 02/15/18 05:54 Pulse Rate 53 L 02/15/18 05:54 Respiratory Rate 20 02/15/18 05:54 Blood Pressure 111/63 02/15/18 05:54 O2 Sat by Pulse Oximetry (%) 97 02/14/18 21:00 Labs: CBC, BMP 02/14/18 06:00 02/14/18 06:00 Problem List - Problems (1) BPH (benign prostatic hyperplasia) Code(s): N40.0 - BENIGN PROSTATIC HYPERPLASIA WITHOUT LOWER URINRY TRACT SYMP (2) Cough Code(s): R05 - COUGH (3) Hypothyroid Code(s): E03.9 - HYPOTHYROIDISM, UNSPECIFIED (4) Pneumonia Code(s): J18.9 - PNEUMONIA, UNSPECIFIED ORGANISM (5) Rheumatoid arthritis Code(s): M06.9 - RHEUMATOID ARTHRITIS, UNSPECIFIED
--- NOTE | 2018-02-15 08:18 | PN ---
Progress Note, Physician Chief Complaint: AWAKE ALERT FEELING BETTER - Current Medication List Current Medications: Active Medications Acetaminophen (Tylenol -) 650 mg PO Q6H PRN PRN Reason: FEVER Albuterol/Ipratropium (Duoneb -) 1 amp NEB Q6H PRN PRN Reason: SHORTNESS OF BREATH Folic Acid (Folic Acid -) 1 mg PO DAILY [facility] Last Admin: 02/14/18 10:29 Dose: 1 mg Guaifenesin (Robitussin -) 10 ml PO Q4H PRN PRN Reason: COUGH Last Admin: 02/14/18 21:39 Dose: 10 ml Ceftriaxone Sodium 1 gm/ (Dextrose) 50 mls @ 100 mls/hr IVPB DAILY [facility]; Protocol Last Admin: 02/14/18 10:29 Dose: 100 mls/hr Azithromycin 500 mg/ Dextrose 250 mls @ 250 mls/hr IVPB DAILY [facility] Last Admin: 02/14/18 11:10 Dose: 250 mls/hr Levothyroxine Sodium (Synthroid -) 50 mcg PO DAILY@0700 [facility] Last Admin: 02/15/18 06:18 Dose: 50 mcg Prednisone (Deltasone -) 5 mg PO DAILY [facility] Last Admin: 02/14/18 10:29 Dose: 5 mg Tamsulosin HCl (Flomax -) 0.4 mg PO DAILY@0830 [facility] Last Admin: 02/14/18 10:29 Dose: 0.4 mg - Objective Vital Signs: Vital Signs Temperature 98.3 F 02/15/18 05:54 Pulse Rate 53 L 02/15/18 05:54 Respiratory Rate 20 02/15/18 05:54 Blood Pressure 111/63 02/15/18 05:54 O2 Sat by Pulse Oximetry (%) 97 02/14/18 21:00 Constitutional: Yes: Mild Distress Eyes: Yes: WNL HENT: Yes: WNL Neck: Yes: WNL Cardiovascular: Yes: WNL Respiratory: Yes: CTA Bilaterally, Cough, On Nasal O2 Gastrointestinal: Yes: WNL Genitourinary: Yes: WNL Musculoskeletal: Yes: Muscle Weakness Edema: Yes Edema: LLE: 1+, RLE: 1+ Peripheral Pulses WNL: Yes Integumentary: Yes: WNL Wound/Incision: Yes: Clean/Dry Neurological: Yes: WNL ...Motor Strength: WNL Psychiatric: Yes: WNL Labs: CBC, BMP 02/14/18 06:00 02/14/18 06:00 Problem List - Problems (1) BPH (benign prostatic hyperplasia) Code(s): N40.0 - BENIGN PROSTATIC HYPERPLASIA WITHOUT LOWER URINRY TRACT SYMP (2) Cough Code(s): R05 - COUGH (3) Hypothyroid Code(s): E03.9 - HYPOTHYROIDISM, UNSPECIFIED (4) Pneumonia Code(s): J18.9 - PNEUMONIA, UNSPECIFIED ORGANISM (5) Rheumatoid arthritis Code(s): M06.9 - RHEUMATOID ARTHRITIS, UNSPECIFIED Assessment/Plan IV ABX IMMUNOCOMPRIMISED ON MTX WILL NEED REPEAT CXR IN 6-8 WEEKS NEBS OOB TO CHAIR DVT PROPHYLAXIS DC PLANNING
[2018-02-15] MEDS ORDERED: DEXTROSE 5%-WATER - 50 ML IVPB ONE (08:20)
[2018-02-15] MEDS ORDERED: cefTRIAXone SODIUM 1 GM VIAL ONE (08:20)
[2018-02-15] MEDS ORDERED: LEVOTHYROXINE NA 50 MCG TABLET (FP) PO SCH (08:52)
[2018-02-15] MEDS: TAMSULOSIN HCL 0.4 MG CAP.ER.24H (FP) PO SCH (09:08)
[2018-02-15] MEDS: predniSONE 5 MG TABLET (UD) PO SCH (09:08)
[2018-02-15] MEDS: guaiFENesin 200 MG/10 ML 10 ML UNIT-DOSE CUPS PO PRN ×2 (09:09→17:41)
[2018-02-15] MEDS: AZITHROMYCIN IVPB 500 MG in DEXTROSE 5%-WATER - 250 ML IVPB SCH (09:09)
[2018-02-15] MEDS: FOLIC ACID 1 MG TABLET (FP) PO SCH (09:09)
--- NOTE | 2018-02-15 10:14 | PN ---
Progress Note (short form) - Note Progress Note: PULMONARY Still with nonproductive cough. No fevers. No shortness of breath. Vital Signs Period Temp Pulse Resp BP Sys/Arnold Pulse Ox Last 24 Hr 97.8 F-98.5 F 52-69 18-20 102-113/53-73 97 Gen: NAD at rest Heart: RRR Lung: left base rales Abd: soft, nontender Ext: no edema CBC, BMP 02/14/18 06:00 02/14/18 06:00 Active Medications Acetaminophen (Tylenol -) 650 mg PO Q6H PRN PRN Reason: FEVER Albuterol/Ipratropium (Duoneb -) 1 amp NEB Q6H PRN PRN Reason: SHORTNESS OF BREATH Folic Acid (Folic Acid -) 1 mg PO DAILY [facility] Last Admin: 02/15/18 09:09 Dose: 1 mg Guaifenesin (Robitussin -) 10 ml PO Q4H PRN PRN Reason: COUGH Last Admin: 02/15/18 09:09 Dose: 10 ml Ceftriaxone Sodium 1 gm/ (Dextrose) 50 mls @ 100 mls/hr IVPB DAILY [facility]; Protocol Last Admin: 02/14/18 10:29 Dose: 100 mls/hr Azithromycin 500 mg/ Dextrose 250 mls @ 250 mls/hr IVPB DAILY [facility] Last Admin: 02/15/18 09:09 Dose: 250 mls/hr Levothyroxine Sodium 12.5 mcg/ (Levothyroxine Sodium 50 mcg) 62.5 mcg PO DAILY@ 0700 [facility] Prednisone (Deltasone -) 5 mg PO DAILY [facility] Last Admin: 02/15/18 09:08 Dose: 5 mg Tamsulosin HCl (Flomax -) 0.4 mg PO DAILY@0830 [facility] Last Admin: 02/15/18 09:08 Dose: 0.4 mg A/P Pneumonia Rheumatoid Arthritis on immunosuppressants Hypothyroidism BPH - continue antibiotics per ID - f/u cultures - incentive spirometry/ambulate - will need outpt CXR in 6-8 weeks to ensure resolution of infiltrates - DVT prophylaxis Problem List - Problems (1) Pneumonia Code(s): J18.9 - PNEUMONIA, UNSPECIFIED ORGANISM (2) Hypothyroid Code(s): E03.9 - HYPOTHYROIDISM, UNSPECIFIED (3) BPH (benign prostatic hyperplasia) Code(s): N40.0 - BENIGN PROSTATIC HYPERPLASIA WITHOUT LOWER URINRY TRACT SYMP
[2018-02-15] MEDS: CEFTRIAXONE 1 GM in DEXTROSE 5%-WATER - 50 ML IVPB SCH (11:02)
[2018-02-16] MEDS ORDERED: LEVOTHYROXINE NA 50 MCG TABLET (FP) ONE (06:11)
[2018-02-16] MEDS ORDERED: LEVOTHYROXINE NA 25 MCG TABLET (FP) ONE (06:11)
[2018-02-16] MEDS ORDERED: LEVOTHYROXINE PO SCH (07:00)
[2018-02-16] MEDS ORDERED: PT OWN MED DRAWER 7, Y5N ONE (08:53)
[2018-02-16] MEDS ORDERED: DEXTROSE 5%-WATER - 50 ML IVPB ONE (08:54)
[2018-02-16] MEDS ORDERED: cefTRIAXone SODIUM 1 GM VIAL ONE (08:54)
[2018-02-16] MEDS: FOLIC ACID 1 MG TABLET (FP) PO SCH (09:00)
[2018-02-16] MEDS: TAMSULOSIN HCL 0.4 MG CAP.ER.24H (FP) PO SCH (09:00)
[2018-02-16] MEDS: predniSONE 5 MG TABLET (UD) PO SCH (09:00)
[2018-02-16] MEDS: guaiFENesin 200 MG/10 ML 10 ML UNIT-DOSE CUPS PO PRN (09:00)
[2018-02-16] MEDS: AZITHROMYCIN IVPB 500 MG in DEXTROSE 5%-WATER - 250 ML IVPB SCH (09:00)
--- NOTE | 2018-02-16 11:24 | PN ---
Progress Note (short form) - Note Progress Note: PULMONARY VSS/AFEBRILE OOB TO CHAIR MUCH IMPROVED ANICTERIC CLEAR B/L LUNG GILMORE S1S2 BS+ NO EDEMA LABS/IMAGES/MEDS/MICRO/NOTES REVIEWED Active Medications reviewed A/P Pneumonia Rheumatoid Arthritis on immunosuppressants Hypothyroidism BPH - continue antibiotics per ID/not opposed to continuing treatment as an outpatient - incentive spirometry/ambulate - will need outpt CXR in 6-8 weeks to ensure resolution of infiltrates - DVT prophylaxis Marco A JOAQUIN MD
--- NOTE | 2018-02-16 14:45 | DS ---
Physical Examination Vital Signs: Vital Signs Temperature 97.8 F 02/16/18 09:00 Pulse Rate 62 02/16/18 09:00 Respiratory Rate 20 02/16/18 09:00 Blood Pressure 113/73 02/16/18 09:00 O2 Sat by Pulse Oximetry (%) 97 02/16/18 09:00 Constitutional: Yes: No Distress Eyes: Yes: WNL HENT: Yes: WNL Neck: Yes: WNL Cardiovascular: Yes: WNL Respiratory: Yes: WNL Gastrointestinal: Yes: WNL Renal/: Yes: WNL Musculoskeletal: Yes: WNL Extremities: Yes: WNL Edema: No Peripheral Pulses WNL: Yes Integumentary: Yes: WNL Wound/Incision: Yes: Clean/Dry Neurological: Yes: WNL ...Motor Strength: WNL Psychiatric: Yes: WNL Labs: CBC, BMP 02/14/18 06:00 02/14/18 06:00 Discharge Summary Reason For Visit: COUGH Current Active Problems BPH (benign prostatic hyperplasia) (Acute) Cough (Acute) Hypothyroid (Acute) Pneumonia (Acute) Rheumatoid arthritis (Acute) Procedures: Principal: CXR Hospital Course: LABS IV ABX NEBS PULM SUPPORT ADMITTED FOR PNEUMONIA AND IMPROVED Condition: Fair - Instructions Referrals: Francis Barrientos MD [Primary Care Provider] - Disposition: HOME - Home Medications Comprehensive Discharge Medication List: Ambulatory Orders Folic Acid 1 mg PO DAILY 04/21/15 Multivitamin [Poly-Vitamin] 1 each PO DAILY 04/21/15 Prednisone 5 mg PO DAILY 04/21/15 Tamsulosin HCl [Flomax -] 0.4 mg PO DAILY 04/21/15 Methotrexate [Mexate -] 20 mg PO Q7D 04/22/15 Acetaminophen [Tylenol .Regular Strength -] 650 mg PO Q6H PRN tablet 02/16/18 Albuterol 2.5/Ipratropium 0.5 [Duoneb -] 1 amp NEB Q6H PRN amp 02/16/18 Amox-Tr/K Cl [Augmentin 500-125mg Tablet -] 1 each PO BID #10 tablet 02/16/18 Folic Acid - 1 mg PO DAILY tablet 02/16/18 Guaifenesin [Robitussin -] 10 ml PO Q4H PRN cup 02/16/18 Levothyroxine [Synthroid -] 62.5 mcg PO DAILY@0700 #30 tablet 02/16/18 Tamsulosin HCl [Flomax -] 0.4 mg PO DAILY@0830 cap.er.24h 02/16/18 predniSONE [Deltasone -] 5 mg PO DAILY tablet 02/16/18
[2018-02-16 15:26] VITALS: BP 119/69; PULSE 65; TEMP 97.6
== END 2018-02-16 16:46 | disposition home or self-care (01) | DRG 194 ==
LOC: JER 11:36 → JERBED 13:37 → OBSVTOIN 15:44 → J7W 18:55
PROVIDERS: ADMIT Family Medicine; ATTEND Family Medicine
DX: J18.9 Pneumonia, unspecified organism (principal); Z68.41 Body mass index [BMI] 40.0-44.9, adult; E03.9 Hypothyroidism, unspecified; E66.01 Morbid (severe) obesity due to excess calories; Z98.84 Bariatric surgery status; N40.0 Benign prostatic hyperplasia without lower urinary tract symptoms; Z87.891 Personal history of nicotine dependence; M06.9 Rheumatoid arthritis, unspecified
CPT/HCPCS: 36415; 71046-TC-FY; 80053; 82550; 83880; 84439; 84443; 84484; 85025; 85379; 87040; 87804; 87899; 93005; 93010; 94010; 99283-25; G0378; J7620

== ENCOUNTER 2019-12-26 19:42 | Emergency (ER) | payer OTHER ==
[2019-12-26 19:47] VITALS: BMI 42.7
--- NOTE | 2019-12-26 20:14 | PDOC ---
History of Present Illness - General Chief Complaint: Foreign Body (FB) Stated Complaint: FOREIGN BODY- THROAT Time Seen by Provider: 12/26/19 19:54 - History of Present Illness Initial Comments: 12/26/19 21:56 78 year old man with no pmhx who presents after swallowing a fish bone and having it stuck in his throat. He reports he felt it imeediately after swallowing, around the base of his neck. He tried to drink some oil and water without relief of symptoms. He denies any difficulty breathing. He has not tried to swallow any solid foods at this time. He has no other complaints. ROS GENERAL/CONSTITUTIONAL: No fever or chills. No weakness. HEAD, EYES, EARS, NOSE AND THROAT: No change in vision. No ear pain or discharge. No sore throat. CARDIOVASCULAR: No chest pain or shortness of breath RESPIRATORY: No cough, wheezing, or hemoptysis. GASTROINTESTINAL: No nausea, vomiting, diarrhea or constipation. + foreign body sensation in the esophagus GENITOURINARY: No dysuria, frequency, or change in urination. MUSCULOSKELETAL: No joint or muscle swelling or pain. No neck or back pain. SKIN: No rash NEUROLOGIC: No headache, vertigo, loss of consciousness, or change in strength/sensation. ENDOCRINE: No increased thirst. No abnormal weight change HEMATOLOGIC/LYMPHATIC: No anemia, easy bleeding, or history of blood clots. ALLERGIC/IMMUNOLOGIC: No hives or skin allergy. PE GENERAL: Awake, alert, and fully oriented, slightly anxious HEAD: No signs of trauma, normocephalic, atraumatic EYES: EOMI, sclera anicteric, conjunctiva clear ENT: oropharynx clear without exudates. Moist mucosa NECK: Normal ROM, supple LUNGS: No distress, speaks full sentences, clear to auscultation bilaterally HEART: Regular rate and rhythm, normal S1 and S2, no murmurs, rubs or gallops, peripheral pulses normal and equal bilaterally. ABDOMEN: Soft, nontender. No guarding, no rebound. No masses EXTREMITIES : Normal inspection, Normal range of motion, no edema. No clubbing or cyanosis. NEUROLOGICAL: Cranial nerves II through XII grossly intact. Normal speech, no focal sensorimotor deficits SKIN: Warm, Dry, normal turgor, no rashes or lesions noted Assessment and Plan 78 year old man with no pmhx who presents after swallowing a fish bone and having it stuck in his throat. Possible esophageal foreign body. XR of neck soft tissue - no foreign body identified. FB likely travelled downward out of view of neck soft tissues will call GI. Patient still complains of foreign body sensation [facility] As patient will need GI evaluation. Will plan for transfer to [facility] Past History - Medical History Allergies/Adverse Reactions: Allergies Allergy/AdvReac Type Severity Reaction Status Date / Time No Known Allergies Allergy Verified 02/12/18 11:38 Home Medications: Ambulatory Orders Folic Acid 1 mg PO DAILY 04/21/15 Multivitamin [Poly-Vitamin] 1 each PO DAILY 04/21/15 Prednisone 5 mg PO DAILY 04/21/15 Tamsulosin HCl [Flomax -] 0.4 mg PO DAILY 04/21/15 Methotrexate [Mexate -] 20 mg PO Q7D 04/22/15 Acetaminophen [Tylenol .Regular Strength -] 650 mg PO Q6H PRN tablet 02/16/18 Albuterol 2.5/Ipratropium 0.5 [Duoneb -] 1 amp NEB Q6H PRN amp 02/16/18 Amox-Tr/K Cl [Augmentin 500-125mg Tablet -] 1 each PO BID #10 tablet 02/16/18 Folic Acid - 1 mg PO DAILY tablet 02/16/18 Guaifenesin [Robitussin -] 10 ml PO Q4H PRN cup 02/16/18 Levothyroxine [Synthroid -] 62.5 mcg PO DAILY@0700 #30 tablet 02/16/18 Tamsulosin HCl [Flomax -] 0.4 mg PO DAILY@0830 cap.er.24h 02/16/18 predniSONE [Deltasone -] 5 mg PO DAILY tablet 02/16/18 COPD: Yes GI Disorders: Yes (COLON POLYPS) Liver Disease: (LARGE LIVER) Thyroid Disease: Yes (HYPOTHYROIDISM) - Surgical History Abdominal Surgery: Yes (gastric sleeve) Cholecystectomy: Yes - Immunization History Immunization Up to Date: Yes - Psycho-Social/Smoking History Smoking History: Never smoked Have you smoked in the past 12 months: No If you are a former smoker, when did you quit?: 20 years ago - Substance Abuse Hx (Audit-C & DAST Scrn) How often the patient has a drink containing alcohol: Never Score: In Men: 4 or > Positive; In Women: 3 or > Positive: 0 Screen Result (Pos requires Nsg. Audit-10AR): Negative In the last yr the pt used illegal drug/Rx for NonMed reason: No Score: Yes response is considered Positive: 0 Screen Result (Positive result requires Nsg. DAST-10): Negative *Physical Exam - Vital Signs Last Vital Signs Temp Pulse Resp BP Pulse Ox 97.8 F 67 19 133/68 96 12/26/19 19:44 12/26/19 19:44 12/26/19 19:44 12/26/19 19:44 12/26/19 19:44 Discharge - Discharge Information Problems reviewed: Yes Clinical Impression/Diagnosis: Foreign body Condition: Stable Disposition: TRANSFER ACUTE CARE/OTHER HOSP - Follow up/Referral Referrals: Francis Barrientos MD [Primary Care Provider] - - Patient Discharge Instructions - Post Discharge Activity
[2019-12-26] MEDS ORDERED: DEXAMETHASONE SOD PHOSPHATE 10 MG/1 ML VIAL IM ONE (21:24)
[2019-12-26] MEDS ORDERED: DEXAMETHASONE SOD PHOSPHATE 10 MG/1 ML VIAL ONE (21:27)
[2019-12-26 21:40] VITALS: TEMP 98
--- NOTE | 2019-12-26 21:54 | PDOC ---
Attending Attestation - Resident Resident Name: Rosy Valente - ED Attending Attestation I have performed the following: I have examined & evaluated the patient, The case was reviewed & discussed with the resident, I agree w/resident's findings & plan, Exceptions are as noted - HPI HPI: 12/27/19 05:09 69M with globus sensation after eating fish, pt states he was fastidiously picking out bones from his fish but he felt a sharp pain after swallowing a bite. He drank some oil in an attempt to relieve the sensation and possible make the bone pass along. No other complaints. - Physicial Exam PE: 12/27/19 05:10 NAD, AOx3 oropharynx clear w/o lesions No palpable neck masses No LAD No stridor, LCTAB - Medical Decision Making 12/27/19 05:10 Possible fish bone ingestion Plain film neck re-eval No obvious fb in throat, no obstruction/swelling GI eval Discharge - Discharge Information Problems reviewed: Yes Clinical Impression/Diagnosis: Foreign body Condition: Stable Disposition: TRANSFER ACUTE CARE/OTHER HOSP - Follow up/Referral Referrals: Francis Barrientos MD [Primary Care Provider] - - Patient Discharge Instructions - Post Discharge Activity
[2019-12-27 00:02] VITALS: BP 155/72
[2019-12-27 00:16] VITALS: PULSE 57
== END 2019-12-27 00:15 | disposition short-term general hospital (02) ==
LOC: JER 19:42
PROC: 3E023GC Introduction of Other Therapeutic Substance into Muscle, Percutaneous Approach (ICD-10-PCS; principal; 2019-12-26)
DX: R07.0 Pain in throat (principal)
CPT/HCPCS: 70360-TC-FY; 99284-25; J1100

== ENCOUNTER 2020-07-03 15:07 | Emergency (ER) | payer OTHER ==
[2020-07-03 15:30] VITALS: TEMP 98.2; BMI 45.4
[2020-07-03 16:48] LABS: BASO % 0.7 % (0-2.0); EOS % 1.1 % (0-4.5); HEMATOCRIT 43.3 % (35.4-49); HEMOGLOBIN 14.6 GM/dL (11.7-16.9); MCHC 33.6 g/dl (32.0-35.9); MEAN CELL VOLUME 89.2 fl (80-96); MEAN PLT VOLUME 7.8 fl (7.5-11.1); MONO % 6.4 % (3.8-10.2); NEUT % 67.8 % (42.8-82.8); PLATELET COUNT 265 K/MM3 (134-434); RBC 4.86 M/mm3 (4.00-5.60); RDW 13.5 % (11.9-15.9); WHITE BLOOD COUNT 6.3 K/mm3 (4.0-10.0)
[2020-07-03 16:55] LABS: INR 1.16 (0.83-1.09); PROTHROMBIN TIME (PATIENT) 14.2 SEC (9.7-13.0)
[2020-07-03 16:58] LABS: ACTIVATED PTT 29.9 SECONDS (25.2-36.5)
[2020-07-03 17:09] LABS: CHLORIDE 105 mmol/L (98-107); POTASSIUM 4.5 mmol/L (3.5-5.1); SODIUM 139 mmol/L (136-145)
[2020-07-03 17:13] LABS: CALCIUM 8.4 mg/dL (8.5-10.1)
[2020-07-03 17:14] LABS: ALBUMIN 3.3 g/dl (3.4-5.0); ANION GAP 3 MMOL/L (8-16); BLOOD UREA NITROGEN 19.9 mg/dL (7-18); CO2 31 mmol/L (21-32); GLUCOSE,RANDOM 100 mg/dL (74-106)
[2020-07-03 17:17] LABS: CREATININE 0.9 mg/dL (0.55-1.3); SGOT/AST 16 U/L (15-37); SGPT/ALT 18 U/L (13-61)
[2020-07-03 17:18] LABS: BILIRUBIN,TOTAL 0.4 mg/dL (0.2-1)
[2020-07-03 17:19] LABS: TOT PROT 6.9 g/dl (6.4-8.2)
[2020-07-03 17:20] LABS: ALK PHOS 83 U/L (45-117)
[2020-07-03 17:48] VITALS: BP 140/70; PULSE 52
== END 2020-07-03 17:50 | disposition home or self-care (01) ==
LOC: JER 15:07
DX: R06.09 Other forms of dyspnea (principal)
CPT/HCPCS: 36415; 71046-TC-FY; 80053; 82550; 83880; 84484; 85025; 85379; 85610; 85730; 93005; 93010; 99285-25; C9803; U0003

== ENCOUNTER 2021-09-24 18:10 | Emergency (ER) | payer OTHER ==
[2021-09-24 18:26] VITALS: BP 117/72; PULSE 60; TEMP 98.8; BMI 44.2
== END 2021-09-24 20:36 | disposition home or self-care (01) ==
LOC: JERFT 18:10
DX: L03.011 Cellulitis of right finger (principal)
CPT/HCPCS: 73140-TC-RT-FY; 99283-25

== ENCOUNTER 2021-10-06 03:33 | Inpatient (IN) | payer OTHER ==
[2021-10-06] MEDS ORDERED: dilTIAZem HCL 50 MG/10 ML - 10 ML VIAL IVPUSH ONE ×2 (04:24→07:26)
[2021-10-06] MEDS ORDERED: ASPIRIN 81 MG CHEWABLE TABLETS PO ONE (04:26)
[2021-10-06] MEDS ORDERED: SODIUM CHLORIDE 0.9% 500 ML INFUS.BAG IV ONE (04:32)
[2021-10-06] MEDS ORDERED: ASPIRIN 81 MG CHEWABLE TABLETS ONE (04:42)
[2021-10-06] MEDS ORDERED: dilTIAZem HCL 50 MG/10 ML - 10 ML VIAL ONE ×2 (04:42→07:28)
[2021-10-06 04:52] LABS: BASO % 1.1 % (0-2.0); EOS % 1.8 % (0-4.5); HEMATOCRIT 44.6 % (35.4-49); HEMOGLOBIN 15.2 GM/dL (11.7-16.9); LYMPH % 23.1 % (8-40); MCH 30.2 pg (25.7-33.7); MCHC 34.1 g/dl (32.0-35.9); MEAN CELL VOLUME 88.7 fl (80-96); MONO % 6.3 % (3.8-10.2); NEUT % 67.7 % (42.8-82.8); PLATELET COUNT 211 10^3/uL (134-434); RBC 5.03 M/mm3 (4.00-5.60); RDW 13.7 % (11.9-15.9); WHITE BLOOD COUNT 8.6 K/mm3 (4.0-10.0)
[2021-10-06] MEDS ORDERED: dilTIAZem HCL 60 MG TABLET PO ONE (04:59)
[2021-10-06 05:07] LABS: INR 1.09 (0.83-1.09); PROTHROMBIN TIME (PATIENT) 12.6 SEC (9.7-13.0)
[2021-10-06 05:09] LABS: CHLORIDE 104 mmol/L (98-107); SODIUM 131 mmol/L (136-145)
[2021-10-06 05:11] LABS: BLOOD UREA NITROGEN 23.6 mg/dL (7-18); CALCIUM 8.4 mg/dL (8.5-10.1)
[2021-10-06 05:13] LABS: ALBUMIN 2.9 g/dl (3.4-5.0); CO2 27 mmol/L (21-32); GLUCOSE,RANDOM 92 mg/dL (74-106)
[2021-10-06 05:15] LABS: CREATININE 1.1 mg/dL (0.55-1.3)
[2021-10-06 05:16] LABS: TOT PROT 7.4 g/dl (6.4-8.2)
[2021-10-06 05:17] LABS: ALK PHOS 72 U/L (45-117)
[2021-10-06] MEDS ORDERED: dilTIAZem HCL 60 MG TABLET ONE (06:25)
[2021-10-06 07:56] LABS: CALCIUM 8.6 mg/dL (8.5-10.1)
[2021-10-06 07:58] LABS: ALBUMIN 3.3 g/dl (3.4-5.0); BLOOD UREA NITROGEN 21.1 mg/dL (7-18)
[2021-10-06 08:01] LABS: CREATININE 0.9 mg/dL (0.55-1.3); TOT PROT 6.4 g/dl (6.4-8.2)
[2021-10-06 08:03] LABS: BILIRUBIN,TOTAL 0.6 mg/dL (0.2-1)
[2021-10-06 08:05] LABS: N-TERMINAL BNP 190.1 pg/ml (5-125)
[2021-10-06 08:19] LABS: EPI CELLS 2 /uL (0-25.1); HYALINE CASTS 30 /uL (0-3.1); PH,URINE 5.5 (5.0-8.0); URINE APPEARANCE CLOUDY; URINE BACTERIA 9 /uL (0-1359); URINE BILIRUBIN NEGATIVE (NEGATIVE); URINE COLOR YELLOW; URINE GLUCOSE (UA) NEGATIVE (NEGATIVE); URINE KETONE NEGATIVE (NEGATIVE); URINE LEUK ESTERASE 2+ (NEGATIVE); URINE NITRITE NEGATIVE (NEGATIVE); URINE PROTEIN 1+ (NEGATIVE); URINE RBC 86 /uL (0-23.9); URINE UROBILINOGEN 0.2 mg/dL (0.2-1.0); URINE WBC 976 /uL (0-25.8)
[2021-10-06] MEDS ORDERED: CEFTRIAXONE 1,000 MG in DEXTROSE 5%-WATER - 50 ML IVPB ONE (08:33)
[2021-10-06] MEDS ORDERED: CEFTRIAXONE 1 GM/50 ML BAG ONE (09:06)
[2021-10-06] MEDS ORDERED: ENOXAPARIN NA (PORCINE) 60 MG/0.6 ML DISP.SYRIN SQ ONE (09:47)
[2021-10-06] MEDS: ENOXAPARIN NA (PORCINE) 120 MG/0.8 ML DISP.SYRIN SQ SCH ×2 (09:55→23:43)
[2021-10-06] MEDS ORDERED: LEVOTHYROXINE SODIUM 100 MCG VIAL IVPUSH SCH (10:45)
[2021-10-06] MEDS ORDERED: METOPROLOL TARTRATE 25 MG TABLET (FP) ONE ×2 (11:18→23:39)
[2021-10-06] MEDS: METOPROLOL TARTRATE 25 MG TABLET (FP) PO SCH ×2 (12:19→23:43)
[2021-10-06 13:54] LABS: MAGNESIUM 2.1 mg/dL (1.8-2.4)
[2021-10-06] MEDS ORDERED: ENOXAPARIN NA (PORCINE) 100 MG/1 ML DISP.SYRIN SQ ONE (23:39)
[2021-10-07 01:22] VITALS: BMI 43.8
[2021-10-07] MEDS ORDERED: LEVOTHYROXINE SODIUM 100 MCG VIAL IVPUSH SCH (07:00)
[2021-10-07 08:24] LABS: BASO % 1.1 % (0-2.0); EOS % 2.6 % (0-4.5); HEMATOCRIT 44.9 % (35.4-49); HEMOGLOBIN 15.2 GM/dL (11.7-16.9); LYMPH % 32.6 % (8-40); MCH 30.2 pg (25.7-33.7); MCHC 33.8 g/dl (32.0-35.9); MEAN CELL VOLUME 89.2 fl (80-96); MEAN PLT VOLUME 8.1 fl (7.5-11.1); MONO % 6.1 % (3.8-10.2); NEUT % 57.6 % (42.8-82.8); PLATELET COUNT 207 10^3/uL (134-434); RBC 5.04 M/mm3 (4.00-5.60); RDW 13.7 % (11.9-15.9); WHITE BLOOD COUNT 6.8 K/mm3 (4.0-10.0)
[2021-10-07 08:35] LABS: CHLORIDE 107 mmol/L (98-107); SODIUM 139 mmol/L (136-145)
[2021-10-07 08:53] LABS: GLUCOSE,RANDOM 84 mg/dL (74-106)
[2021-10-07 08:54] LABS: ALBUMIN 2.9 g/dl (3.4-5.0); ANION GAP 5 MMOL/L (8-16); BLOOD UREA NITROGEN 17.8 mg/dL (7-18); CALCIUM 8.8 mg/dL (8.5-10.1); CO2 28 mmol/L (21-32)
[2021-10-07 08:57] LABS: CREATININE 0.8 mg/dL (0.55-1.3); SGPT/ALT 14 U/L (13-61)
[2021-10-07 08:58] LABS: BILIRUBIN,TOTAL 0.6 mg/dL (0.2-1); SGOT/AST 11 U/L (15-37); TOT PROT 5.9 g/dl (6.4-8.2)
[2021-10-07 09:00] LABS: ALK PHOS 70 U/L (45-117)
[2021-10-07] MEDS ORDERED: cefTRIAXone SODIUM 1 GM VIAL ONE (09:03)
[2021-10-07] MEDS ORDERED: DEXTROSE 5%-WATER - 50 ML IVPB ONE (09:04)
[2021-10-07] MEDS: ENOXAPARIN NA (PORCINE) 120 MG/0.8 ML DISP.SYRIN SQ SCH ×2 (10:19→14:02)
[2021-10-07] MEDS: TAMSULOSIN HCL 0.4 MG CAP PO SCH (10:20)
[2021-10-07] MEDS: CEFTRIAXONE 1 GM in DEXTROSE 5%-WATER - 50 ML IVPB SCH (10:20)
[2021-10-07] MEDS: METOPROLOL TARTRATE 50 MG TABLET (FP) PO SCH ×2 (10:24→21:04)
[2021-10-07] MEDS: LEVOTHYROXINE NA 150 MCG TABLET PO SCH (10:26)
[2021-10-07] MEDS: DIGOXIN 0.25 MG TABLET PO SCH ×2 (16:18→21:03)
[2021-10-07] MEDS: APIXABAN 5 MG TABLET PO SCH (21:04)
[2021-10-08] MEDS: DIGOXIN 0.25 MG TABLET PO SCH ×2 (00:26→04:21)
[2021-10-08] MEDS: LEVOTHYROXINE NA 150 MCG TABLET PO SCH (06:24)
[2021-10-08 07:57] LABS: BASO % 0.8 % (0-2.0); EOS % 3.3 % (0-4.5); HEMATOCRIT 46.9 % (35.4-49); HEMOGLOBIN 15.6 GM/dL (11.7-16.9); LYMPH % 32.8 % (8-40); MCHC 33.2 g/dl (32.0-35.9); MEAN CELL VOLUME 90.2 fl (80-96); MEAN PLT VOLUME 8.6 fl (7.5-11.1); MONO % 6.3 % (3.8-10.2); NEUT % 56.8 % (42.8-82.8); PLATELET COUNT 211 10^3/uL (134-434); RDW 13.8 % (11.9-15.9)
[2021-10-08] MEDS: TAMSULOSIN HCL 0.4 MG CAP PO SCH (08:30)
[2021-10-08 09:27] LABS: CHLORIDE 108 mmol/L (98-107); SODIUM 141 mmol/L (136-145)
[2021-10-08 09:28] LABS: CALCIUM 8.5 mg/dL (8.5-10.1)
[2021-10-08 09:29] LABS: ANION GAP 7 MMOL/L (8-16); BLOOD UREA NITROGEN 17.5 mg/dL (7-18); CO2 27 mmol/L (21-32); GLUCOSE,RANDOM 85 mg/dL (74-106); MAGNESIUM 2.1 mg/dL (1.8-2.4)
[2021-10-08 09:32] LABS: CREATININE 0.8 mg/dL (0.55-1.3); SGOT/AST 10 U/L (15-37); SGPT/ALT 14 U/L (13-61)
[2021-10-08 09:34] LABS: BILIRUBIN,TOTAL 0.5 mg/dL (0.2-1)
[2021-10-08 09:35] LABS: ALK PHOS 76 U/L (45-117)
[2021-10-08] MEDS ORDERED: cefTRIAXone SODIUM 1 GM VIAL ONE (09:58)
[2021-10-08] MEDS ORDERED: DEXTROSE 5%-WATER - 50 ML IVPB ONE (09:59)
[2021-10-08] MEDS ORDERED: DIGOXIN 0.25 MG TABLET PO SCH (10:00)
[2021-10-08] MEDS: APIXABAN 5 MG TABLET PO SCH ×2 (10:06→22:13)
[2021-10-08] MEDS: CEFTRIAXONE 1 GM in DEXTROSE 5%-WATER - 50 ML IVPB SCH (10:06)
[2021-10-08] MEDS: METOPROLOL TARTRATE 50 MG TABLET (FP) PO SCH (10:08)
[2021-10-09] MEDS: LEVOTHYROXINE NA 150 MCG TABLET PO SCH (06:29)
[2021-10-09] MEDS ORDERED: DEXTROSE 5%-WATER - 50 ML IVPB ONE (10:33)
[2021-10-09] MEDS ORDERED: cefTRIAXone SODIUM 1 GM VIAL ONE (10:33)
[2021-10-09] MEDS: metoPROLOL SUCCINATE 25 MG TAB.SR.24H (FP) PO SCH (10:35)
[2021-10-09] MEDS: TAMSULOSIN HCL 0.4 MG CAP PO SCH (10:36)
[2021-10-09] MEDS: APIXABAN 5 MG TABLET PO SCH ×2 (10:36→21:17)
[2021-10-09] MEDS: CEFTRIAXONE 1 GM in DEXTROSE 5%-WATER - 50 ML IVPB SCH (10:37)
[2021-10-09] MEDS: DRONEDARONE HCL 400 MG TAB (FP) PO SCH ×2 (10:46→17:52)
[2021-10-10] MEDS: LEVOTHYROXINE NA 150 MCG TABLET PO SCH (06:10)
[2021-10-10] MEDS: TAMSULOSIN HCL 0.4 MG CAP PO SCH (08:04)
[2021-10-10] MEDS: DRONEDARONE HCL 400 MG TAB (FP) PO SCH ×2 (08:05→17:47)
[2021-10-10] MEDS ORDERED: DEXTROSE 5%-WATER - 50 ML IVPB ONE (09:19)
[2021-10-10] MEDS ORDERED: cefTRIAXone SODIUM 1 GM VIAL ONE (09:19)
[2021-10-10] MEDS: APIXABAN 5 MG TABLET PO SCH (09:21)
[2021-10-10] MEDS: metoPROLOL SUCCINATE 25 MG TAB.SR.24H (FP) PO SCH (09:21)
[2021-10-10] MEDS: CEFTRIAXONE 1 GM in DEXTROSE 5%-WATER - 50 ML IVPB SCH (09:22)
[2021-10-10 15:46] VITALS: BP 113/55; PULSE 59; TEMP 97.8
[2021-10-11 17:07] LABS: THYROID STIM IMMUNOGLOBULIN <0.10 IU/L (0.00-0.55)
== END 2021-10-10 19:30 | disposition home or self-care (01) | DRG 309 ==
LOC: JER 03:33 → JERBED 08:31 → J4W 10-07 00:45
PROVIDERS: ADMIT Family Medicine; ATTEND Family Medicine
DX: I48.91 Unspecified atrial fibrillation (principal); Z68.41 Body mass index [BMI] 40.0-44.9, adult; J98.11 Atelectasis; I24.8 Other forms of acute ischemic heart disease; N39.0 Urinary tract infection, site not specified; R07.89 Other chest pain; E03.9 Hypothyroidism, unspecified; E66.01 Morbid (severe) obesity due to excess calories; M06.9 Rheumatoid arthritis, unspecified; N40.0 Benign prostatic hyperplasia without lower urinary tract symptoms; E78.5 Hyperlipidemia, unspecified; I10 Essential (primary) hypertension; R74.8 Abnormal levels of other serum enzymes; B35.1 Tinea unguium; B95.1 Streptococcus, group B, as the cause of diseases classified elsewhere
CPT/HCPCS: 36415; 71045-TC-FY; 71275-TC; 80053; 80061; 81003; 83036; 83735; 83880; 84439; 84443; 84445; 84480; 84484; 85025; 85610; 86376; 87077; 87086; 93005; 93010; 93306-TC; 93970-TC; 99285-25; C9803-CS; Q9967; U0003; U0005

== ENCOUNTER 2022-01-12 16:05 | Emergency (ER) | payer OTHER ==
[2022-01-12 16:35] VITALS: RESP 18; TEMP 98; BMI 43.2
[2022-01-12] MEDS ORDERED: SODIUM CHLORIDE 1,000 ML IV STA (19:40)
[2022-01-12] MEDS ORDERED: ALBUTEROL SO4 2.5/IPRATROPIUM 0.5 INH SOL 3 ML VIAL.NEB. NEB ONE ×2 (19:40→19:50)
[2022-01-12 20:56] LABS: BASO % 0.3 % (0-2.0); EOS % 1.5 % (0-4.5); HEMATOCRIT 41.5 % (35.4-49); HEMOGLOBIN 14.1 GM/dL (11.7-16.9); LYMPH % 28.7 % (8-40); MCH 30.3 pg (25.7-33.7); MEAN CELL VOLUME 89.1 fl (80-96); MEAN PLT VOLUME 7.4 fl (7.5-11.1); MONO % 4.6 % (3.8-10.2); NEUT % 64.9 % (42.8-82.8); PLATELET COUNT 178 10^3/uL (134-434); RBC 4.66 M/mm3 (4.00-5.60); RDW 14.7 % (11.9-15.9); WHITE BLOOD COUNT 7.7 K/mm3 (4.0-10.0)
[2022-01-12 21:24] LABS: ACTIVATED PTT 33.3 SECONDS (25.2-36.5); INR 1.39 (0.83-1.09)
[2022-01-12 21:28] LABS: ALBUMIN 3.2 g/dl (3.4-5.0); CALCIUM 8.3 mg/dL (8.5-10.1)
[2022-01-12 21:31] LABS: CREATININE 0.8 mg/dL (0.55-1.3)
[2022-01-12 21:33] LABS: BILIRUBIN,TOTAL 0.6 mg/dL (0.2-1); TOT PROT 6.5 g/dl (6.4-8.2)
[2022-01-12 21:43] LABS: N-TERMINAL BNP 175.9 pg/ml (5-125)
[2022-01-12 21:58] VITALS: BP 125/57; PULSE 61
[2022-01-12] MEDS ORDERED: DEXAMETHASONE SOD PHOSPHATE 10 MG/1 ML VIAL ONE (22:17)
[2022-01-12] MEDS ORDERED: DEXAMETHASONE SOD PHOSPHATE 10 MG/1 ML VIAL IVPUSH ONE (22:19)
[2022-01-12] MEDS ORDERED: AZITHROMYCIN 250 MG TABLET PO ONE (22:19)
[2022-01-12] MEDS ORDERED: AZITHROMYCIN 500 MG TABLET ONE (22:20)
== END 2022-01-12 23:42 | disposition home or self-care (01) ==
LOC: JER 16:05
PROC: 3E0F7GC Introduction of Other Therapeutic Substance into Respiratory Tract, Via Natural or Artificial Opening (ICD-10-PCS; principal; 2022-01-12)
PROC: 3E0337Z Introduction of Electrolytic and Water Balance Substance into Peripheral Vein, Percutaneous Approach (ICD-10-PCS; 2022-01-12)
PROC: 3E033NZ Introduction of Analgesics, Hypnotics, Sedatives into Peripheral Vein, Percutaneous Approach (ICD-10-PCS; 2022-01-12)
DX: J18.9 Pneumonia, unspecified organism (principal)
CPT/HCPCS: 0241U-QW; 36415; 71046-TC-FY; 80053; 83735; 83880; 85025; 85610; 85730; 93005; 93010; 99284-25; J1100